=== PATIENT | male | born 1990 | race African-American/Black ===

== ENCOUNTER 2020-04-14 07:42 | Emergency (ER) | payer OTHER ==
[~2020-04-14] VITALS: Ht 170.2 cm; Wt 70.0 kg
[2020-04-14] MEDS ORDERED: MORPHINE SULFATE 4 MG/ML CPJ (NOT FOR IM USE) IV ONE ×2 (08:02→08:15)
[2020-04-14] MEDS ORDERED: ONDANSETRON HCL 4MG/2ML INJ ONE (08:03)
[2020-04-14] MEDS ORDERED: KETOROLAC 30MG/ML VIAL IV STA (08:06)
[2020-04-14] MEDS ORDERED: SODIUM CHLORIDE 0.9% 1,000 ML IV ONE (08:06)
[2020-04-14] MEDS ORDERED: ONDANSETRON HCL 4MG/2ML INJ IV ONE ×2 (08:15→10:00)
[2020-04-14] MEDS ORDERED: PROPOFOL 200MG/20ML VIAL IV ONE ×2 (08:15→10:00)
[2020-04-14] MEDS ORDERED: KETAMINE HCL 50 MG/ML 10ML IV ONE ×2 (08:15→10:00)
[2020-04-14 11:10] VITALS: BP 124/96
== END 2020-04-14 11:24 | disposition home or self-care (01) ==
LOC: ER 07:42
DX: S43.085A Other dislocation of left shoulder joint, initial encounter (principal); W22.8XXA Striking against or struck by other objects, initial encounter; Y93.89 Activity, other specified; Y92.89 Other specified places as the place of occurrence of the external cause; Y99.8 Other external cause status; F12.10 Cannabis abuse, uncomplicated
CPT/HCPCS: 23650; 73030; 93005; 96361; 96374; 96375; 99152; 99285; J1885; J2270; J2405; J2704; J3490; J7030; L3670